=== PATIENT | male | born 1970 | race Caucasian/White ===

== ENCOUNTER → 2017-02-12 | Outpatient (CLI) | payer BC ==
--- NOTE | 2017-02-12 09:55 | DIAGNOSTIC IMAGING REPORT ---
ULTRASOUND ABDOMEN COMPLETE CLINICAL HISTORY: Generalized abdominal pain. COMPARISON STUDY: Abdominal ultrasound dated 05/21/2011. Chest CT dated 04/20/2013. TECHNIQUE: Real-time, grayscale, and color flow sonography of the abdomen was performed. Images are reviewed in the transverse and longitudinal planes. FINDINGS: Liver: The liver is normal in size and echotexture. There is no intrahepatic biliary ductal dilatation. A 2.3 cm septation containing cyst is noted in the right hepatic lobe. A 2.7 cm echogenic lesion in the right lobe is consistent with a hemangioma when correlated with the [address] The main portal vein is patent. Gallbladder: The gallbladder is normal in appearance. No gallstones are identified. There is no gallbladder wall thickening or pericholecystic fluid. A sonographic Bridges's sign is reportedly absent. The common bile duct measures up to 0.3 cm in diameter. Pancreas: Visualized portions of the pancreatic head and body are normal in appearance. The splenic vein is patent. Spleen: The spleen is normal in size and echotexture, measuring 12.5 cm in length. Kidneys: The kidneys demonstrate cortical atrophy. There is no hydronephrosis. The right kidney measures 12.4 cm in length and the left kidney measures 10.5 cm in length. No shadowing calculi are identified. A 2.9 cm cyst is noted in the right lower pole. Abdominal vasculature: Visualized portions of the abdominal aorta and IVC are normal as visualized. Ascites: None. IMPRESSION: 1. No acute sonographic abnormality is identified. 2. No gallstones are seen. 3. A 2.7 cm echogenic lesion in the right hepatic lobe is unchanged from the [address] and typical in appearance for a hemangioma. 4. Additional findings as above. Electronically signed by: Nino Henning M.D. 02/12/2017 9:54 AM Dictated Date/Time: 02/12/2017 9:51 AM
== END | disposition home or self-care (01) ==
LOC: C.ULTR 09:06
PROVIDERS: ATTEND Family Medicine
DX: R10.9 Unspecified abdominal pain (principal); K76.9 Liver disease, unspecified